=== PATIENT | male | born 1990 | race African-American/Black ===

== ENCOUNTER 2016-09-14 01:22 | Emergency (ER) | payer MEDICAID ==
[~2016-09-14] VITALS: Ht 182.9 cm; Wt 181.4 kg
[~2016-09-14 01:22] MED LIST: ALBUAER3 IN; BECL80AE9 IN; BUPR300T30 PO; LISI-206 PO; LISI-709 PO; MULT-352 OR; OMEG100078 PO; PRAV20TA3 PO; ZOLP10TA PO
[2016-09-14 04:16] VITALS: BP 137/77
[2016-09-14] MEDS ORDERED: HYDROcodone-ACET 10/325MG TAB PO ONE (05:00)
[2016-09-14] MEDS ORDERED: KETOROLAC TROMETH 60MG/2ML VIAL IM ONE (05:00)
== END 2016-09-14 05:02 | disposition home or self-care (01) ==
LOC: ER 01:22
DX: S39.012A Strain of muscle, fascia and tendon of lower back, initial encounter (principal); J45.909 Unspecified asthma, uncomplicated; Z88.8 Allergy status to other drugs, medicaments and biological substances; Z79.899 Other long term (current) drug therapy; X58.XXXA Exposure to other specified factors, initial encounter; Y93.E1 Activity, personal bathing and showering; Y92.89 Other specified places as the place of occurrence of the external cause; Y99.8 Other external cause status
CPT/HCPCS: 72131